=== PATIENT | female | born 1945 | race Caucasian/White ===

== ENCOUNTER 2021-04-11 09:28 | Outpatient (CLI) | payer MEDICARE, BC | END 2021-04-11 09:29 | disposition home or self-care (01) | LOC: CSHMRI 09:28 | PROVIDERS: ATTEND Anesthesiology Pain Medicine | DX: M23.8X2 Other internal derangements of left knee (principal); S83.242A Other tear of medial meniscus, current injury, left knee, initial encounter; M17.12 Unilateral primary osteoarthritis, left knee ==

== ENCOUNTER 2022-10-15 09:24 | Outpatient (CLI) | payer MEDICARE, BC ==
[2022-10-15] MEDS ORDERED: Magnevist 469MG/ML 20 ML VIAL ONE (09:28)
== END 2022-10-15 09:25 | disposition home or self-care (01) ==
LOC: CSHMRI 09:24
PROVIDERS: ATTEND Nurse Practitioner Family
DX: M48.062 Spinal stenosis, lumbar region with neurogenic claudication (principal); M43.16 Spondylolisthesis, lumbar region; Z98.890 Other specified postprocedural states; M47.816 Spondylosis without myelopathy or radiculopathy, lumbar region
CPT/HCPCS: 72100; 72158

== ENCOUNTER 2023-07-25 07:46 | Outpatient (CLI) | payer MEDICARE | END 2023-07-25 07:47 | disposition home or self-care (01) | LOC: CSHMRI 07:46 | PROVIDERS: ATTEND Nurse Practitioner Family | DX: M48.02 Spinal stenosis, cervical region (principal); M47.812 Spondylosis without myelopathy or radiculopathy, cervical region | CPT/HCPCS: 72141 ==